=== PATIENT | female | born 1980 | race African-American/Black ===

== ENCOUNTER 2025-09-07 00:29 | Inpatient (IN) | payer BC ==
[~2025-09-07] VITALS: Ht 167.6 cm; Wt 70.9 kg
[2025-09-07 01:08] LABS: VENOUS BASE EXCESS 2.0 (-2.0-2.0); VENOUS HCO3 27.1 MMOL/L (23.0-27.0); VENOUS O2 SATURATION 46.5 % (60.0-80.0); VENOUS PARTIAL PRESSURE CO2 44.3 mmHg (38.0-50.0); VENOUS PARTIAL PRESSURE O2 28.5 mmHg (30.0-50.0); VENOUS PH 7.404 UNITS (7.330-7.430); VENOUS STANDARD HCO3 25.3 MMOL/L; VENOUS TOTAL CO2 28.4 MMOL/L (24.0-28.0)
[2025-09-07 01:23] LABS: BASO # 0.0 10^3/uL (0.0-0.2); BASO % 0.5 % (0.0-1.0); EOS # 0.1 10^3/uL (0.0-0.5); EOS % 1.3 % (0.0-3.0); LYMPH # 1.5 10^3/uL (1.5-5.0); LYMPH % 24.3 % (24.0-44.0); MONO # 0.5 10^3/uL (0.0-0.8); MONO % 8.2 % (2.0-8.0); NEUTROPHILS # 3.9 10^3/uL (1.5-8.5); NEUTROPHILS % 65.5 % (36.0-66.0); PLATELET COUNT, AUTOMATED 414 10^3/uL (150-450)
[2025-09-07 01:41] LABS: CK-MB VALUE MASS 2.4 NG/ML (<3.6)
[2025-09-07 01:43] LABS: ALT/SGPT 31.0 U/L (7.0-40); AST/SGOT 29.0 U/L (<34); CALCIUM LEVEL 8.5 MG/DL (8.5-10.1); CARBON DIOXIDE LEVEL 27.0 MMOL/L (20-31); CHLORIDE LEVEL 107.0 MMOL/L (98-107); CPK CREATINE PHOSPHOKINASE 151.0 U/L (34-145); CREATININE FOR GFR 0.93 MG/DL (0.55-1.30); GLOMERULAR FILTRATION RATE 76.8 (>58); MB/CK RELATIVE INDEX 1.58 (< OR =4); POTASSIUM SERUM 4.0 MMOL/L (3.5-5.1); SODIUM LEVEL 144.0 MMOL/L (136-145)
[2025-09-07 01:45] LABS: THYROXINE (T4) 6.7 UG/DL (4.5-10.9)
[2025-09-07] MEDS ORDERED: ISOVUE-370 76% 100 ML VIAL As Ordered ONE (06:41)
[2025-09-07] MEDS ORDERED: NITROGLYCERIN 0.4 MG SUBL TABLET SL PRN (07:35)
[2025-09-07] MEDS: FUROSEMIDE 20 MG/2 ML VIAL IV ONE (07:42)
[2025-09-07] MEDS ORDERED: CETI10TA4 PO (10:14)
[2025-09-07] MEDS ORDERED: CARV12.5 PO (10:14)
[2025-09-07] MEDS ORDERED: FARX1TAB3 PO (10:14)
[2025-09-07] MEDS ORDERED: SPIR-10 PO (10:14)
[2025-09-07] MEDS ORDERED: ENTR1TAB PO (10:14)
[2025-09-07 10:58] LABS: IRON (FE) 11.0 UG/DL (50-170); PERCENT SATURATION 3.0 % (13.2-45.0)
[2025-09-07 11:20] VITALS: BP 151/99; TEMP 98; O2SAT 96
[2025-09-07] MEDS ORDERED: HOME MED LIST COMPLETE! XX SCH (11:40)
[2025-09-07 12:00] VITALS: O2SAT 99
[2025-09-07 16:00] VITALS: BP 147/94; TEMP 98; O2SAT 94
[2025-09-07] MEDS: FERRIC CARBOXYMALTOSE INJ 750 MG, VIAL MATE ADAPTER 1 EACH in NS 100 ML IV ONE (17:53)
[2025-09-07 20:00] VITALS: BP 143/94; TEMP 99; O2SAT 98
[2025-09-07] MEDS: ENOXAPARIN 40 MG/0.4 ML SYRINGE (J1650 PER 10MG) SC SCH (20:21)
[2025-09-07] MEDS: FUROSEMIDE 40 MG/4 ML VIAL IV SCH (20:21)
[2025-09-07 21:00] VITALS: O2SAT 97
[2025-09-08] VITALS (7 sets, daily range): BP systolic 116–149; BP diastolic 80–96; TEMP 97.4–98.8; O2SAT 95–99
[2025-09-08 04:30] LABS: PLATELET COUNT, AUTOMATED 389 10^3/uL (150-450)
[2025-09-08 04:59] LABS: CALCIUM LEVEL 8.4 MG/DL (8.5-10.1); CARBON DIOXIDE LEVEL 26.0 MMOL/L (20-31); CHLORIDE LEVEL 104.0 MMOL/L (98-107); CREATININE FOR GFR 0.98 MG/DL (0.55-1.30); GLOMERULAR FILTRATION RATE 72.1 (>58); POTASSIUM SERUM 3.7 MMOL/L (3.5-5.1); SODIUM LEVEL 139.0 MMOL/L (136-145)
[2025-09-08] MEDS ORDERED: PILL CUTTER 1 EACH XX PRN (08:15)
[2025-09-08] MEDS: DAPAGLIFLOZIN PROPANEDIOL 10 MG TABLET PO SCH (08:25)
[2025-09-08] MEDS: ENTRESTO 24-26 MG TABLET (SACUBITRIL/VALSARTAN) PO SCH (08:25)
[2025-09-09] MEDS: CEPACOL LOZENGE PO PRN (00:26)
[2025-09-09 04:36] VITALS: BP 118/87; TEMP 98.1; O2SAT 97
[2025-09-09 05:06] LABS: PLATELET COUNT, AUTOMATED 427 10^3/uL (150-450)
[2025-09-09 05:24] LABS: CALCIUM LEVEL 9.1 MG/DL (8.5-10.1); CARBON DIOXIDE LEVEL 25.0 MMOL/L (20-31); CHLORIDE LEVEL 105.0 MMOL/L (98-107); CREATININE FOR GFR 0.99 MG/DL (0.55-1.30); GLOMERULAR FILTRATION RATE 71.2 (>58); MAGNESIUM LEVEL 2.0 MG/DL (1.8-2.4); POTASSIUM SERUM 3.5 MMOL/L (3.5-5.1); SODIUM LEVEL 142.0 MMOL/L (136-145)
[2025-09-09 07:23] VITALS: BP 128/82; TEMP 98.1; O2SAT 99
[2025-09-09 08:33] VITALS: BP 128/82
[2025-09-09 11:58] VITALS: BP 120/78; TEMP 98.1; O2SAT 99
[2025-09-09] MEDS ORDERED: ENTR1TAB PO (12:43)
[2025-09-09] MEDS ORDERED: CARV12.5 PO (12:43)
[2025-09-10 20:52] LABS: SOLUBLE TRANSFERRIN RECEPTOR 4.63 mg/L (0.76-1.76)
== END 2025-09-09 13:35 | disposition home or self-care (01) | DRG 194 ==
LOC: M ED 00:29 → M ED INP 09:39 → M ICU 11:20
PROVIDERS: ADMIT Internal Medicine; ATTEND Student in an Organized Health Care Education/Training Program
DX: I11.0 Hypertensive heart disease with heart failure (principal); I34.0 Nonrheumatic mitral (valve) insufficiency; Z91.148 Patient's other noncompliance with medication regimen for other reason; D53.9 Nutritional anemia, unspecified; I50.23 Acute on chronic systolic (congestive) heart failure; I27.20 Pulmonary hypertension, unspecified

== ENCOUNTER → 2025-10-21 | Outpatient (REF) | payer BC, MEDICAID ==
[~2025-10-21] MED LIST: CARV12.5 PO; CETI10TA4 PO; ENTR1TAB PO; FARX1TAB3 PO; SPIR-10 PO
[2025-10-21 13:05] LABS: ALT/SGPT 13 U/L (7.0-40); AST/SGOT 15 U/L (<34); CALCIUM LEVEL 9.2 MG/DL (8.5-10.1); CARBON DIOXIDE LEVEL 27 MMOL/L (20-31); CHLORIDE LEVEL 106 MMOL/L (98-107); CHOLESTEROL LEVEL 125 MG/DL (<200); CHOLESTEROL RISK RATIO 2.22 (<5); CREATININE FOR GFR 0.91 MG/DL (0.55-1.30); GLOMERULAR FILTRATION RATE 78.8 (>58); IRON (FE) 24 UG/DL (50-170); LDL CHOLESTEROL 60.0 MG/DL (<100); NON-HDL-C 68.8 MG/DL; PERCENT SATURATION 7.3 % (13.2-45.0); POTASSIUM SERUM 4.0 MMOL/L (3.5-5.1); SODIUM LEVEL 142 MMOL/L (136-145); TRIGLYCERIDES LEVEL 44 MG/DL (<150)
[2025-10-21 13:06] LABS: BASO # 0.0 10^3/uL (0.0-0.2); BASO % 0.4 % (0.0-1.0); EOS # 0.1 10^3/uL (0.0-0.5); EOS % 1.3 % (0.0-3.0); LYMPH # 1.9 10^3/uL (1.5-5.0); LYMPH % 40.8 % (24.0-44.0); MONO # 0.3 10^3/uL (0.0-0.8); MONO % 6.5 % (2.0-8.0); NEUTROPHILS # 2.4 10^3/uL (1.5-8.5); NEUTROPHILS % 50.8 % (36.0-66.0); PLATELET COUNT, AUTOMATED 285 10^3/uL (150-450)
[2025-10-21 13:13] LABS: TOTAL 25(OH) VITAMIN D 30.0 NG/ML (20.0-100.0)
[2025-10-21 13:15] LABS: ESTIMATED AVERAGE GLUCOSE 103.0 MG/DL (60-110)
[2025-10-21 13:36] LABS: HIV 1&2 SCREEN NEGATIVE (NEGATIVE)
[2025-10-21 13:44] LABS: HEPATITIS C VIRUS ABY INDEX < 0.02 INDEX (<0.8)
== END ==
LOC: M LAB REF 11:47
PROVIDERS: ATTEND Physician Assistant
DX: D64.9 Anemia, unspecified (principal); E55.9 Vitamin D deficiency, unspecified; Z11.9 Encounter for screening for infectious and parasitic diseases, unspecified; I10 Essential (primary) hypertension